=== PATIENT | female | born 1965 | race Caucasian/White ===

== ENCOUNTER 2016-07-28 12:50 | Outpatient (CLI) | payer OTHER ==
--- NOTE | 2016-07-28 14:43 | DIAGNOSTIC IMAGING REPORT ---
PROCEDURE: US COMPLETE PELVIC W/TRANSVAG INDICATION: PELVIC PAIN TECHNIQUE: Transabdominal and endovaginal charles scale and color Doppler sonographic images of the female pelvis were obtained. COMPARISON: None. FINDINGS: TRANSABDOMINAL SCANS: Anteverted uterus measures 9.4 x 6.6 x 4.5 cm. Normal contour and echotexture. Normal adnexa without suspicious mass. The visible portion of the urinary bladder is normal. No significant free pelvic fluid. TRANSVAGINAL SCANS: The uterus is anteverted and anteflexed in position and has a homogeneous myometrial echotexture. The endometrium is 10 mm in thickness at the fundus. Along the posterior wall of the endometrium, possibly just outside the endometrium, there is a focal heterogeneous, mildly hypoechoic ovoid mass measuring approximately 1.4 x 0.8 x 1.2 cm demonstrating posterior shadowing. Mild vascularity is seen. The right ovary measures 2.7 x 2.2 x 2.1 cm and has a normal follicular echotexture containing a dominant 1.5 cm follicle. There is normal blood flow in the right ovary. The left ovary was not identified. No suspicious left adnexal mass. . No suspicious adnexal masses or free pelvic fluid. IMPRESSION: 1. There is an ovoid shadowing mass along the posterior, submucosal surface of the endometrium which is probably a small submucosal fibroid, less likely endometrial polyp. 2. The fundal endometrium, distal to the small mass, measures 10 mm, which is still abnormally thickened for a postmenopausal female. Hysteroscopy and tissue acquisition is suggested. 3. Nonvisualization of the left ovary but no suspicious adnexal mass.
--- NOTE | 2016-07-28 15:51 | DIAGNOSTIC IMAGING REPORT ---
PROCEDURE: MG BILATERAL SCREENING W/CAD INDICATION: Screening. TECHNIQUE: Bilateral CC and MLO digital views. COMPARISON: Compared to left mammogram and left breast ultrasound (03/22/2014), and screening mammogram (03/15/2014) FINDINGS: Computer-aided detection applied. Mildly dense and nodular with a few dystrophic calcifications and benign intramammary lymph nodes. No change. IMPRESSION: 1. Negative mammogram. RESULT CODE: 1- Negative. A. A negative report should not delay biopsy if a dominant or clinically suspicious mass is present. 10-15% of cancers are not identified by x-ray. B. A negative report may reinforce clinical impression. C. Adenosis and dense breasts may obscure an underlying neoplasm. D. False positive reports average 6-10%. E.. A yearly screening mammogram is recommended. A reminder letter will be scheduled.
== END 2016-07-28 23:00 ==
LOC: US SRH 12:50
DX: N85.8 Other specified noninflammatory disorders of uterus (principal); N95.9 Unspecified menopausal and perimenopausal disorder; Z12.31 Encounter for screening mammogram for malignant neoplasm of breast